=== PATIENT | male | born 1995 | race American Indian/Alaskan Native ===

== ENCOUNTER 2019-03-15 17:03 | Emergency (ER) | payer SELFPAY ==
[2019-03-15] MEDS ORDERED: ASPIRIN PO ONE (19:16)
--- NOTE | 2019-03-15 19:47 | XRay Report ---
CHEST 2 VIEWS INDICATION / CLINICAL INFORMATION: chest pain, dyspnea. COMPARISON: None available. FINDINGS: SUPPORT DEVICES: None. HEART / MEDIASTINUM: No significant abnormality. LUNGS / PLEURA: No significant pulmonary or pleural abnormality. No pneumothorax. ADDITIONAL FINDINGS: No significant additional findings. IMPRESSION: 1. No acute findings. Signer Name: Itz Villa MD Signed: 03/15/2019 7:43 PM Workstation Name: [id number]
[2019-03-15 20:06] LABS: Basophils # (Auto) 0.1 K/mm3 (0.0-0.1); Basophils % (Auto) 1.1 % (0.0-1.8); Eosinophils # (Auto) 0.1 K/mm3 (0.0-0.4); Eosinophils % (Auto) 1.4 % (0.0-4.3); Hematocrit 43.5 % (35.5-45.6); Hemoglobin 14.8 gm/dl (11.8-15.2); Lymphocytes % (Auto) 38.5 % (13.4-35.0); Mean Corpuscular HGB Conc 34 % (32-34); Mean Corpuscular Volume 92 fl (84-94); Monocytes # (Auto) 0.3 K/mm3 (0.0-0.8); Monocytes % (Auto) 6.3 % (0.0-7.3); Platelet Count 280 K/mm3 (140-440); Red Blood Count 4.72 M/mm3 (3.65-5.03); Red Cell Distribution Width 13.6 % (13.2-15.2)
[2019-03-15 20:51] LABS: Alanine Aminotransferase 83 units/L (7-56); Albumin 4.9 g/dL (3.9-5); BUN/Creatinine Ratio 11; Blood Urea Nitrogen 8 mg/dL (9-20); Calcium 10.2 mg/dL (8.4-10.2); Hemolysis Index 30
--- NOTE | 2019-03-15 21:29 | Emergency Department Report ---
ED General Adult HPI - General Chief complaint: Dyspnea/Respdistress Stated complaint: SOB/CHEST PRESSURE Time Seen by Provider: 03/15/19 19:05 Source: patient Mode of arrival: Ambulatory Limitations: No Limitations - History of Present Illness Initial comments: Patient is a 23-year-old -Luxembourger male with a history of chronic heavy tobacco abuse who presents to the ED with complaint of left-sided chest tightness and shortness of breath for the last 4 days intermittently. Patient states that tetanus under shortness of breath is worse with any physical activity or exertion. Patient denies diaphoresis, palpitations, dizziness, headache, nausea, vomiting, diarrhea, abdominal pain, numbness and tingling of upper and lower extremities bilaterally, headache, syncope, sore throat, cough or change in vision or neck pain. MD Complaint: dyspnea, chest wall tightness -: Sudden, days(s) (3) Location: chest Radiation: non-radiation Severity scale (0 -10): 3 Quality: aching, dull Consistency: constant Improves with: none Worsens with: none Associated Symptoms: denies other symptoms, chest pain, shortness of breath. denies: confusion, cough, diaphoresis, fever/chills, headaches, loss of appe tite, malaise, nausea/vomiting, rash, seizure Treatments Prior to Arrival: none - Related Data Previous Rx's Medication Instructions Recorded Last Taken Type ALBUTEROL Inhaler (OR & NICU) 1 - 2 puff IH Q4H PRN #1 inha 03/15/19 Unknown Rx [ProAir HFA Inhaler] Ibuprofen [Motrin] 600 mg PO Q8H PRN #15 tablet 03/15/19 Unknown Rx hydrOXYzine PAMOATE [Vistaril] 25 mg PO Q6HR PRN #20 capsule 03/15/19 Unknown Rx Allergies Allergy/AdvReac Type Severity Reaction Status Date / Time No Known Allergies Allergy Unverified 03/15/19 17:08 ED Review of Systems ROS: Stated complaint: SOB/CHEST PRESSURE Other details as noted in HPI Constitutional: denies: chills, fever Eyes: denies: eye pain, eye discharge, vision change ENT: denies: ear pain, throat pain Respiratory: shortness of breath. denies: cough, wheezing Cardiovascular: chest pain. denies: palpitations, dyspnea on exertion, orthopnea, syncope, paroxysmal nocturnal dyspnea, other Endocrine: no symptoms reported Gastrointestinal: denies: abdominal pain, nausea, diarrhea Genitourinary: denies: urgency, dysuria Musculoskeletal: denies: back pain, joint swelling, arthralgia Skin: denies: rash, lesions Neurological: denies: headache, weakness, paresthesias Psychiatric: denies: anxiety, depression Hematological/Lymphatic: denies: easy bleeding, easy bruising ED Past Medical Hx - Past Medical History Previous Medical History?: Yes Hx Asthma: Yes - Surgical History Past Surgical History?: No - Medications Home Medications: Home Medications Medication Instructions Recorded Confirmed Last Taken Type ALBUTEROL Inhaler (OR & NICU) 1 - 2 puff IH Q4H PRN #1 inha 03/15/19 Unknown Rx [ProAir HFA Inhaler] Ibuprofen [Motrin] 600 mg PO Q8H PRN #15 tablet 03/15/19 Unknown Rx hydrOXYzine PAMOATE [Vistaril] 25 mg PO Q6HR PRN #20 capsule 03/15/19 Unknown Rx ED Physical Exam - General Limitations: No Limitations General appearance: alert, in no apparent distress - Head Head exam: Present: atraumatic, normocephalic, normal inspection - Eye Eye exam: Present: normal appearance, PERRL, EOMI. Absent: scleral icterus, conjunctival injection, nystagmus, periorbital swelling Pupils: Present: normal accommodation - ENT ENT exam: Present: normal exam, mucous membranes moist, TM's normal bilaterally, normal external ear exam - Neck Neck exam: Present: normal inspection, full ROM - Respiratory Respiratory exam: Present: normal lung sounds bilaterally. Absent: respiratory distress, wheezes, rales, rhonchi, chest wall tenderness, accessory muscle use, decreased breath sounds - Cardiovascular Cardiovascular Exam: Present: regular rate, normal rhythm, normal heart sounds. Absent: systolic murmur, diastolic murmur, rubs, gallop - GI/Abdominal GI/Abdominal exam: Present: soft, normal bowel sounds. Absent: tenderness, guarding, rebound, hyperactive bowel sounds, hypoactive bowel sounds, organomegaly - Rectal Rectal exam: Present: deferred - Extremities Exam Extremities exam: Present: normal inspection, full ROM, normal capillary refill - Back Exam Back exam: Present: normal inspection, full ROM. Absent: tenderness, CVA tenderness (R), muscle spasm, paraspinal tenderness, vertebral tenderness - Neurological Exam Neurological exam: Present: alert, oriented X3, CN II-XII intact, normal gait, reflexes normal - Psychiatric Psychiatric exam: Present: normal affect, normal mood - Skin Skin exam: Present: warm, dry, intact, normal color. Absent: rash ED Course - Reevaluation(s) Reevaluation #1: 03/15/19 21:28 This is a 23-year-old -Luxembourger male with a history of chronic tobacco abuse who presented to the ED with shortness of breath and chest tightness. Patient is alert and oriented 3 and is not in distress. Lab test results were reviewed and are unremarkable except for elevated LFTs. Chest x-ray shows no acute cardiopulmonary modalities. EKG shows normal sinus rhythm with ventricular rate of 63 bpm, no ST and T-wave abnormalities. Patient was discharged home on medications for pain and advised follow-up with his primary care physician in 5-7 days for reevaluation. Patient was also encouraged to quit tobacco smoking. 03/15/19 21:29 03/15/19 22:18 ED Medical Decision Making - Lab Data Result diagrams: 03/15/19 19:38 03/15/19 19:38 - EKG Data EKG shows normal: sinus rhythm Rate: normal - EKG Data Interpretation: normal EKG 03/15/19 22:19 Normal sinus rhythm, ventricular rate of 63 bpm; No ST or T wave abnormalities - Radiology Data Radiology results: report reviewed, image reviewed Chest x-ray shows no acute cardiopulmonary abnormalities - Medical Decision Making This is a 23-year-old -Luxembourger male with a history of chronic tobacco abuse who presented to the ED with shortness of breath and chest tightness. Patient is alert and oriented 3 and is not in distress. Lab test results were reviewed and are unremarkable except for elevated LFTs. Chest x-ray shows no acute cardiopulmonary modalities. EKG shows normal sinus rhythm with ventricular rate of 63 bpm, no ST and T-wave abnormalities. Patient was discharged home on medications for pain and advised follow-up with his primary care physician in 5-7 days for reevaluation. Patient was also encouraged to quit tobacco smoking. - Differential Diagnosis Anxiety, chest wall muscle strain; acuet costochondritis Critical care attestation.: If time is entered above; I have spent that time in minutes in the direct care of this critically ill patient, excluding procedure time. ED Disposition Clinical Impression: Acute costochondritis, Anxiety as acute reaction to exceptional stress, Tobacco dependence, Shortness of breath Disposition: DC-01 TO HOME OR SELFCARE Is pt being admited?: No Does the pt Need Aspirin: No Condition: Stable Instructions: How to Stop Smoking (ED), Costochondritis (ED), Dyspnea (ED), Anxiety (ED) Additional Instructions: Take medications with food, drink plenty of fluids and follow-up with the primary care physician as advised in 5-7 days for reevaluation. Return to the ED immediately if symptoms get worse. Prescriptions: Ibuprofen [Motrin] 600 mg PO Q8H PRN #15 tablet PRN Reason: Pain ALBUTEROL Inhaler (OR & NICU) [ProAir HFA Inhaler] 1 - 2 puff IH Q4H PRN #1 inha PRN Reason: Dyspnea hydrOXYzine PAMOATE [Vistaril] 25 mg PO Q6HR PRN #20 capsule PRN Reason: Anxiety Referrals: [facility] [Outside] - 3-5 Days Time of Disposition: 21:33 Print Language: GUYANESE
== END 2019-03-15 22:13 | disposition home or self-care (01) ==
LOC: ED 17:03
DX: M94.0 Chondrocostal junction syndrome [Tietze] (principal); F41.9 Anxiety disorder, unspecified; J45.909 Unspecified asthma, uncomplicated; F17.200 Nicotine dependence, unspecified, uncomplicated; Z79.899 Other long term (current) drug therapy
CPT/HCPCS: 36415; 71046; 80053; 84484; 85025; 93005; 93010